=== PATIENT | female | born 1955 | race Caucasian/White ===

== ENCOUNTER → 2016-04-26 | Day surgery (SDC) | payer BC ==
[~2016-04-26] VITALS: Ht 167.6 cm; Wt 76.4 kg
[~2016-04-26] MED LIST: *RESP: ALBUTEROL 2.5 MG/3 ML NEB (PRN) PERIprocedural Use ONLY NEB ONE; ALPR.5 PO; AUGM875 PO; CYAN100015 INJ; EPINEPHrine HCL (1:1000) 1 MG/ML VIAL ONE; FURO1TAB62 PO; INSULIN HUMAN REGULAR 1,000 UNITS/10 ML VIAL SQ PRN; LACTATED RINGER'S 1000 ML IV SCH; LEVA500T PO; LEVO50TA53 PO; LIDOCAINE HCL 2% 50 ML VIAL ONE; LORT5TAB PO; METOPROLOL TARTRATE 25 MG TAB PO PRN; MIDAZOLAM HCL 2 MG/2 ML VIAL ONE; NORT25CA PO; ONDANSETRON HCL 4 MG/2 ML VIAL IV PUSH ONE; PROPOFOL 200 MG/20 ML AMP IV ONE; RESP: RACEPINEPHRINE 2.25% 0.5 ML NEB NEB ONE; SODIUM CHLORID 0.9% 500 ML IV SCH; SODIUM CHLORIDE 0.9% 20 ML VIAL ONE; SULF5SUS; TIZA4CAP3 PO; VITA10003 PO
--- NOTE | 2016-04-26 12:33 | MH ---
cc: LISA PATEL M.D., BRUCE G. DO ANEJA, ARJUN DATE OF ADMISSION 04/26/2016 DATE OF 1955 CHIEF COMPLAINT The patient will come for bronchoscopy on 04/26/2016. HISTORY OF PRESENT ILLNESS Ms. Lancaster is a pleasant 60-year-old female with a history of non-Hodgkin lymphoma diagnosed in 2009. She was treated with chemotherapy Rituxan and CHOP followed by two years of maintenance Rituxan which she completed in 2012. She was complaining of chronic cough, small amount of sputum production. No fever or chills. The patient was treated by Dr. Patel. She was sent for a CT scan of the chest done on November 18, 2016 at [facility]. It shows that she has a 4.4 x 2.8 cm soft tissue density in the right mediastinal region which is occluding the right upper lobe and right lower lobe bronchus and is causing a collapse of the lower lobe and the upper lobe. She also has a lesion was seems to impinge into the right mainstem bronchus. She has cough with a small amount of sputum production. No hemoptysis. PAST MEDICAL HISTORY 1. Non-Hodgkin's lymphoma status post chemotherapy 2. Crohn's disease 3. Anxiety disorder MEDICATIONS 1. Lasix 20 mg 2. Xanax 0.5 mg 3. Bactrim as needed 5. Levothyroxine 88 mcg 6. Tizanidine as needed PAST SURGICAL HISTORY She has history of: 1. Hysterectomy 2. Cholecystectomy 3. She has ileostomy which was reversed. 4. Hidradenitis surgery SOCIAL HISTORY She has a history of smoking for 20 years half to one pack a day which she quit in 2019. She drinks one beer. She is self-employed. FAMILY HISTORY for 42 years. She has two children, one has remission of ALL. Has one sister. Mother with cancer of the ovary and father with cancer of the lung. REVIEW OF SYSTEMS She denies any weight loss or fatigue. No fever or chills. No night. No hemoptysis. PHYSICAL EXAMINATION A well-built, well-nourished female not in acute distress. VITAL SIGNS: Blood pressure 126/72, heart rate 113, respirations 16, weight 169, oxygen saturation 92%. HEENT: Pupils are equal and reactive to light. Oral mucosa and mucosa normal. NECK: Supple. JVP not raised. CHEST: Equal bilaterally. No rhonchi. CARDIOVASCULAR: S1 and S2 normal. ABDOMEN: Soft, nondistended. She has a ileostomy in place. EXTREMITIES: No edema. IMPRESSION 1. A 4.5 x 2.9 cm soft tissue mass in the right mediastinal region obstructing the right upper lobe and right lower lobe bronchus causing postobstructive pneumonia. She also has a lesion impinging in the right upper lobe bronchus. Malignancy needs to be ruled out. 2. Non-Hodgkin's lymphoma 3. Crohn's disease 4. Anxiety disorder PLAN I have discussed with the patient, she will need bronchoscopy. I explained to her procedure the procedure and the complications including complications of anesthesia, pneumothorax requiring chest tube, bleeding complication, injury to the blood vessels and lungs, nerves, arrhythmia, she understands and wants to proceed with this. She will be scheduled for bronchoscopy at [facility] on 04/26/2016. MD STEWART Judge/RYAN /10:26 PM /11:30 AM EDMUNDO
[2016-04-26 14:45] VITALS: BP 98/63; PULSE 100; RESP 18; TEMP 98; O2SAT 97
[2016-04-26 15:16] LABS: AUTOMATED NEUTROPHIL # 6.9 TH/MM3 (1.8-7.7); BASOPHIL # 0.1 TH/MM3 (0-0.2); BASOPHIL % 0.7 % (0.0-2.0); EOSINOPHIL # 0.1 TH/MM3 (0-0.4); EOSINOPHIL % 1.6 % (0.0-4.0); HEMATOCRIT 42.4 % (35.0-46.0); HEMO FLAGS DIFF FINAL; LYMPH % 13.1 % (9.0-44.0); LYMPHOCYTE # 1.2 TH/MM3 (1.0-4.8); MEAN CORPUSCULAR HEMOGLOBIN 28.2 PG (27.0-34.0); MEAN CORPUSCULAR HGB CONC 33.2 % (32.0-36.0); MONO % 6.4 % (0.0-8.0); NEUT % 78.2 % (16.0-70.0); PLATELET COUNT 191 TH/MM3 (150-450); RED BLOOD COUNT 4.98 MIL/MM3 (4.00-5.30); RED CELL DISTRIBUTION WIDTH 12.9 % (11.6-17.2); WHITE BLOOD COUNT 8.9 TH/MM3 (4.0-11.0)
[2016-04-26 15:22] LABS: APTT (PATIENT) 27.5 SEC (24.3-30.1); PROTHROMBIN TIME - PATIENT 11.2 SEC (9.8-11.6)
--- NOTE | 2016-04-26 16:50 | MR ---
cc: ANNA MCLAIN ABDUL J. M.D. DATE 04/26/16 PROCEDURE Bronchoscopy PREOPERATIVE DIAGNOSIS Lung mass. POSTOPERATIVE DIAGNOSIS Two separate obstructing masses found in the entrance to the right upper lobe and one in the right lower lobe. PROCEDURE Informed consent was obtained from the patient. Procedure and the complications including complication of pneumothorax requiring chest tube, bleeding complication, injury due to the blood vessel, lungs, nerves, arrhythmia were explained and she consented for the procedure. The patient was brought to endoscopy suite under general anesthesia. LMA tube was placed by anesthesiologist. Bronchoscopy done through LMA tube. She has a large obstructing mass at the entrance of the right upper lobe. It is very friable and bleeds easily. Bronchoscope gradually advanced to the right lower lobe. There is another obstructing mass at the right lower lobe which is also very friable. The right lower lobe, right upper lobe brushings were done. The patient started bleeding. It was controlled with saline epinephrine lavage. After frequent lavages, finally bleeding was controlled. Biopsy was not done because of excessive bleeding. Bronchoscope pulled back, advanced to the left lung. Left upper lingula lower lobe were visualized. Small amount of spilled over blood was suctioned. No endobronchial lesion was seen. Brushing samples is sent from right upper lobe and right lower lobe. Cytology from the right lung and washings also sent for routine culture, AFB and fungal culture. Postprocedure chest x-ray ordered. MD STEWART Judge/ /4:25 PM /4:35 PM MTDEnrique
--- NOTE | 2016-04-26 17:00 | RADRPT ---
EXAM DATE/TIME: 04/26/2016 16:41 [facility] COMPARISON: No previous studies available for comparison. INDICATIONS : Post bronchoscopy. MEDICAL HISTORY : None. SURGICAL HISTORY : None. ENCOUNTER: Initial ACUITY: 1 day PAIN SCORE: 2/10 LOCATION: Right chest FINDINGS: A single view of the chest demonstrates significant opacity in the right upper lung field characteris tics of right upper lobe collapse. Minimal airspace disease is also noted along theright diaphragm. S mall right pleural effusion appears to be present. Left lung is clear. Heart is normal in size. There is no significant hilar enlargement. Osseous structures are intact. CONCLUSION: No evidence of pneumothorax status post bronchoscopy. Right upper lobe opacity characteristic of collapse. Suspect a small right pleural effusion and right basilar airspace disease. Nima Griffith MD on April 26, 2016 at 16:56 Board Certified Radiologist. This report was verified electronically.
[2016-04-26 18:35] VITALS: BP 121/69; PULSE 129; RESP 20; TEMP 98; O2SAT 95
--- NOTE | 2016-04-27 15:45 | EKG ---
Date Performed: 04/26/2016 Time Performed: 14:34:30 PTAGE: 60 years EKG: SINUS TACHYCARDIA POSSIBLE RIGHT VENTRICULAR CONDUCTION DELAY MODERATE T-WAVE ABNORMALITY, CONSIDER ANTERIOR ISCHEMIA ABNORMAL ECG PREVIOUS TRACING : 05/31/2010 12.11 Compared to previous tracing, the patient is now tachycardi c. DOCTOR: Cristal Dean Interpretating Date/Time 04/27/2016 15:44:52
== END | disposition home or self-care (01) ==
LOC: HSDC 14:02
PROVIDERS: ATTEND Specialist
DX: R91.8 Other nonspecific abnormal finding of lung field (principal); R05 Cough; Z85.72 Personal history of non-Hodgkin lymphomas; Z87.891 Personal history of nicotine dependence; R94.31 Abnormal electrocardiogram [ECG] [EKG]; B96.20 Unspecified Escherichia coli [E. coli] as the cause of diseases classified elsewhere
CPT/HCPCS: 00520; 31622; 71010; 85025; 85610; 85730; 87015; 87070; 87077; 87102; 87116; 87186; 87205; 87206; 93005; 94640; 94664; J0171; J2250; J2405; J7120; J7613

== ENCOUNTER 2016-05-16 08:00 | Day surgery (SDC) | payer BC ==
[~2016-05-16] VITALS: Ht 167.6 cm; Wt 76.8 kg
[2016-05-16] VITALS (8 sets, daily range): BP systolic 102–133; BP diastolic 60–82; PULSE 93–116; RESP 18–20; TEMP 96.9–97.5; O2SAT 93–96
[~2016-05-16 08:00] MED LIST changes: -*RESP: ALBUTEROL 2.5 MG/3 ML NEB (PRN) PERIprocedural Use ONLY NEB ONE; -AUGM875 PO; -EPINEPHrine HCL (1:1000) 1 MG/ML VIAL ONE; -INSULIN HUMAN REGULAR 1,000 UNITS/10 ML VIAL SQ PRN; -LACTATED RINGER'S 1000 ML IV SCH; -LIDOCAINE HCL 2% 50 ML VIAL ONE; -LORT5TAB PO; -METOPROLOL TARTRATE 25 MG TAB PO PRN; -MIDAZOLAM HCL 2 MG/2 ML VIAL ONE; -ONDANSETRON HCL 4 MG/2 ML VIAL IV PUSH ONE; -PROPOFOL 200 MG/20 ML AMP IV ONE; -RESP: RACEPINEPHRINE 2.25% 0.5 ML NEB NEB ONE; -SODIUM CHLORID 0.9% 500 ML IV SCH; -SODIUM CHLORIDE 0.9% 20 ML VIAL ONE; -SULF5SUS; -VITA10003 PO
[2016-05-16] MEDS ORDERED: LIDOCAINE 1%/EPINEPHrine 1:100,000 SOLN 20 ML VIAL ONE (08:15)
[2016-05-16] MEDS ORDERED: VITA10003 PO (08:35)
[2016-05-16] MEDS ORDERED: fentaNYL CITRATE 250 MCG/5 ML AMP ONE (09:16)
[2016-05-16] MEDS ORDERED: MIDAZOLAM HCL 5 MG/5 ML VIAL ONE (09:17)
--- NOTE | 2016-05-16 10:19 | RADRPT ---
EXAM DATE/TIME: 05/16/2016 09:25 [facility] COMPARISON: No previous studies available for comparison. INDICATIONS : Right lung mass. SEDATION TIME: 30 minutes BIOPSY SITE: Right lung MEDICATION(S): 1.) 3 mg midazolam (Versed) IV 2.) 150 mcg fentanyl (Sublimaze) IV DEVICE(S): 1.) 18 gauge West blunt needle 2.) 20 gauge Temno core biopsy needle MEDICAL HISTORY : Crohn's disease. Chronic obstructive pulmonary disease. Non-Hodgkins lymphoma. SURGICAL HISTORY : Appendectomy. Hysterectomy. Cholecystectomy. Ileostomy. ENCOUNTER: Initial ACUITY: 1 day PAIN SCORE: 0/10 LOCATION: Right chest A total of four core specimen(s) were obtained and sent to the laboratory for pathologic evaluation. PROCEDURE: 1. CT guided lung biopsy. 2. Conscious sedation with continuous EKG and oximetry monitoring. 3. EKG and oximetry remained stable throughout the procedure. Prior to the procedure informed consent was obtained. Any appropriate prior imaging studies were rev iewed. Using automated exposure control and adjustment of the mA and/or kV according to patient size, radiation dose was kept as low as reasonably achievable to obtain optimal diagnostic quality images. The site was prepped in a sterile fashion. Full sterile technique was used, including cap, mask, alicia rile gloves and gown and a large sterile sheet. Hand hygiene and 2% chlorhexidine and/or betadine/al cohol prep was utilized per protocol for cutaneous antisepsis. The skin and subcutaneous tissues wer e infiltrated with local anesthetic solution. Under CT guidance an 18 gauge blunt needle was placed down to the lesion. 4 cores were obtained from the most solid part of the consolidation. Material was submitted for culture, RPMI and formalin. Follow-up CT scan reveals no pneumothorax. Conscious sedation was performed with the prescribed dosages and duration as above in the presence of an independent trained radiology nurse to assist in the monitoring of the patient. EKG and oximetry remained stable throughout the procedure. The patient tolerated the procedure well and there were no complications. The patient was sent to Radiology Outpatient Unit in stable condition. CONCLUSION: Uncomplicated CT guided biopsy. Pathology and culture are pending. Guido Tyson MD FACR on May 16, 2016 at 10:17 Board Certified Radiologist. This report was verified electronically.
--- NOTE | 2016-05-16 12:15 | RADRPT ---
EXAM DATE/TIME: 05/16/2016 12:03 [facility] COMPARISON: CHEST SINGLE AP, April 26, 2016, 16:41. INDICATIONS : Evaluate for pmeumothorax. Post right lung biopsy MEDICAL HISTORY : Chronic obstructive pulmonary disease. SURGICAL HISTORY : Appendectomy. ENCOUNTER: Initial ACUITY: 1 day PAIN SCORE: 0/10 LOCATION: Right chest FINDINGS: There is no significant interval change in the appearance of the right lung following biopsy of the r ight lower lobe. The left lung is clear. CONCLUSION: Negative for pneumothorax. Guido Tyson MD FACR on May 16, 2016 at 12:12 Board Certified Radiologist. This report was verified electronically.
== END 2016-05-16 14:45 | disposition home or self-care (01) ==
LOC: HRAD 08:00 → HRIP 08:03 → HRAD 14:45
PROVIDERS: ATTEND Thoracic Surgery (Cardiothoracic Vascular Surgery)
DX: R91.8 Other nonspecific abnormal finding of lung field (principal); C85.90 Non-Hodgkin lymphoma, unspecified, unspecified site; J44.9 Chronic obstructive pulmonary disease, unspecified; K50.90 Crohn's disease, unspecified, without complications; Z90.49 Acquired absence of other specified parts of digestive tract
CPT/HCPCS: 32405; 71010; 77012; 87015; 87070; 87102; 87116; 87205; 87206; 88305; 88333; J2250; J3010

== ENCOUNTER → 2016-06-22 | Day surgery (SDC) | payer BC ==
[~2016-06-22] MED LIST changes: +ACETAMINOPHEN 1000 MG/100 ML VIAL IV ONE; +HEPARIN SODIUM - IV 10,000 UNITS/10 ML VIAL ONE; +LACTATED RINGER'S 1000 ML INJ 1,000 ML ONE; -LEVA500T PO; +LIDOCAINE 1%/EPINEPHrine 1:100,000 SOLN 50 ML VIAL ONE; +MIDAZOLAM HCL 2 MG/2 ML VIAL ONE; +ONDANSETRON HCL 4 MG/2 ML VIAL IV PUSH ONE; +PROPOFOL 200 MG/20 ML AMP IV ONE; +SODIUM CHLORIDE 0.9% INJ 10 ML ONE; +VITA10003 PO; +ceFAZolin 2 GM PREMIX 50 ML ONE
--- NOTE | 2016-06-22 09:18 | TN ---
cc: KEVIN LAKE M.D., ABDUL J. M.D. DATE OF SURGERY: 06/22/2016 PREOPERATIVE DIAGNOSIS Right lung cancer. POSTOPERATIVE DIAGNOSIS Right lung cancer. PROCEDURE Left subclavian Gjwzbg-J-Ktwn placement under direct fluoroscopic visualization. SURGEON Dr. Kevin Lake ANESTHESIA Local 1% lidocaine with epinephrine plus TIVA. INDICATIONS This is a very pleasant 60-year-old woman who presents with a right lung cancer. She is to undergo chemoradiation. Wpgsku-D-Gmej placement was requested. INTRAOPERATIVE FINDINGS Successful placement of a left subclavian Ipilul-O-Igfp. Mediastinal anatomy distorted by tumor, but tip of catheter in superior vena cava. There was easy blood return and forward concentrated heparinized saline flush flowed through the port. ESTIMATED BLOOD LOSS Less than 10 mL. Portable chest x-ray is pending. DESCRIPTION OF PROCEDURE IN DETAIL The patient was identified as Parvin Lancaster, taken to the operating room and placed in supine position. Sequential compression devices were placed on bilateral lower extremities. Following induction of adequate intravenous anesthesia a rolled sheet was placed beneath the shoulder blades and she was placed in Trendelenburg position. The upper chest and neck were prepped and draped in the usual sterile fashion with Betadine. A timeout procedure was performed. Following completion of the timeout procedure to everyone's satisfaction within the room, 1% lidocaine with epinephrine was placed in a left subclavian position for local anesthetic. The left subclavian vein was entered without difficulty using an introducer needle on the first pass. The guidewire was advanced through the introducer needle into appropriate position as seen on C-arm fluoroscopy. Mediastinal structures were distorted and the guidewire lay more to the right than in a normal situation, but given her cancer location this was an expected finding. An incision was made at the guidewire exit site and Ekkdsf-D-Admq pocket was developed into the subcutaneous tissue in the left chest wall. The Pxdbbn-A-Ngso which had been flushed with heparinized saline was placed into the Eatykm-C-Bznc pocket with two 2-0 Prolene stay sutures. The catheter was cut to an appropriate length as seen on C-arm fluoroscopy 21 cm. The dilator and dilating sheath were placed over the guidewire. The dilator and guidewire were removed and the catheter extended to the dilating sheath which was then removed. C-arm fluoroscopy demonstrated the tip of the catheter in the expected location of the superior vena cava. Port function was tested. There was easy blood return and forward concentrated heparinized saline flush flowed through the port. The Pgtpce-O-Dotf pocket was closed with 3-0 Vicryl and 4-0 Monocryl. Dressings were applied with Mastisol, half-inch brown Steri-Strips, gauze and Tegaderm. The patient tolerated the procedure without apparent complication. Sponge, needle and instrument counts were correct at the end of the case. The patient was returned to the post-anesthesia care unit in stable condition. A portable chest x-ray is pending. MD KATIE Glass/ANJEL /8:37 AM /9:02 AM
== END | disposition home or self-care (01) ==
LOC: ESDC 06:37
PROVIDERS: ATTEND Surgery Trauma Surgery
DX: Z45.2 Encounter for adjustment and management of vascular access device (principal); C34.91 Malignant neoplasm of unspecified part of right bronchus or lung
CPT/HCPCS: 00532; 36561; 77001; C1788; J0131; J0690; J1644; J2250; J2405; J3010; J7120

== ENCOUNTER 2016-08-22 09:07 | Day surgery (SDC) | payer BC ==
[~2016-08-22] VITALS: Ht 167.6 cm; Wt 74.5 kg
[~2016-08-22 09:07] MED LIST changes: -ACETAMINOPHEN 1000 MG/100 ML VIAL IV ONE; -HEPARIN SODIUM - IV 10,000 UNITS/10 ML VIAL ONE; -LACTATED RINGER'S 1000 ML INJ 1,000 ML ONE; -LIDOCAINE 1%/EPINEPHrine 1:100,000 SOLN 50 ML VIAL ONE; -MIDAZOLAM HCL 2 MG/2 ML VIAL ONE; -ONDANSETRON HCL 4 MG/2 ML VIAL IV PUSH ONE; -PROPOFOL 200 MG/20 ML AMP IV ONE; -SODIUM CHLORIDE 0.9% INJ 10 ML ONE; -ceFAZolin 2 GM PREMIX 50 ML ONE
[2016-08-22 09:21] VITALS: BP 105/51; PULSE 102; RESP 20; TEMP 98.2; O2SAT 97
[2016-08-22] MEDS ORDERED: GABA300C5 PO (09:49)
[2016-08-22 12:50] VITALS: BP 85/63; PULSE 109; RESP 20; TEMP 98.3; O2SAT 95
--- NOTE | 2016-08-22 12:53 | PD.RAD ---
Post Procedure Progress Note Pre Procedure Diagnosis: (1) Problem with vascular access Post Procedure Diagnosis: (1) Problem with vascular access Procedure Date: Aug 22, 2016 Supervising Radiologist: Jesu Lui JR Proceduralist/Assist: RT Jon(R)() Anesthesia: Other Plan of Activity Patient to Unit: ROPU Patient Condition: Good Additional Comments: Left chest port evaluation shows port with tip at innominate/brachiocephalic confluence. A fibrin sheath is seen around tip of catheter. Port can be utilized for administration of medications but blood draws will likely not be possible. See PACS Report for procedural detail/treatment Jr. Hu,Jesu Celaya MD Aug 22, 2016 12:53
[2016-08-22 13:00] VITALS: BP 99/67; PULSE 106; RESP 18; O2SAT 95
--- NOTE | 2016-08-22 13:59 | RADRPT ---
EXAM DATE/TIME: 08/22/2016 12:29 [facility] COMPARISON: No previous studies available for comparison. INDICATIONS : Patient with history of lung cancer in need of port patency injection. Port flushes but does not aspi rate. MEDICAL HISTORY : 1.Lung cancer 2.Hypothyroidism 3.Hypercholesterolemia 4.Non-hodgkins lymphoma 5.Crohns SURGICAL HISTORY : 1.Port placement 2.Ileostomy 3.Cholecystectomy 4.Appendectomy 5.Hysterectomy 6.Fistula repair 7.Hernia repair ENCOUNTER: Initial ACUITY: 2 months PAIN SCORE: 0/10 FLUORO TIME: 0.1 minutes IMAGE SERIES: 1 CONTRAST: 7 cc Omnipaque (iohexol) 350 MEDICATION(S): 1.) 500 units Heparin port lock IV PROCEDURE : 1. Access of Dayzhn-c-vzic. 2. Port patency injection. The risks, benefits and alternatives to the procedure were explained and verbal and written consent w as obtained. The patient was placed supine. The port was prepped in sterile fashion. Full sterile t echnique was used, including cap, mask, sterile gloves and gown, and a large sterile sheet. Hand hyg iene and 2% chlorhexidine prep was utilized per protocol for cutaneous antisepsis with appropriate dr y time for site. The previously placed port was accessed and positive contrast was injected for evaluation. Injection demonstrates a left subclavian vein Port-A-Cath. The tip of the catheter abuts the lateral wall of t he vein at the confluence of the innominate vein and brachiocephalic vein. There is a fibrin sheath i nvolving the tip of the catheter. The tip of the catheter is within the lumen of the vein. No extrava sation of contrast observed to suggest a fracture within the catheter. Access to the catheter is not needed and therefore the catheter was flushed with heparin solution and the Noble needle removed. CONCLUSION: 1. Fibrin sheath surrounding the tip of the catheter. The catheter is within the venous structures. T his port can be utilized for infusion. Aspiration for blood will likely yield no significant return. Jesu Lui Jr., MD on August 22, 2016 at 13:55 Board Certified Radiologist. This report was verified electronically.
== END 2016-08-22 13:05 | disposition home or self-care (01) ==
LOC: HROP 09:07 → HRIP 09:10 → HROP 13:05
PROVIDERS: ATTEND Internal Medicine Hematology & Oncology
DX: T82.514A Breakdown (mechanical) of infusion catheter, initial encounter (principal); C34.90 Malignant neoplasm of unspecified part of unspecified bronchus or lung; E03.9 Hypothyroidism, unspecified; E78.00 Pure hypercholesterolemia, unspecified; Z85.72 Personal history of non-Hodgkin lymphomas; K50.90 Crohn's disease, unspecified, without complications
CPT/HCPCS: 36598; J1642

== ENCOUNTER 2016-10-31 14:11 | Inpatient (IN) | payer BC ==
[~2016-10-31] VITALS: Ht 167.6 cm; Wt 74.6 kg
[~2016-10-31 14:11] MED LIST changes: +GABA300C5 PO
[2016-10-31 16:16] VITALS: BP 95/50; PULSE 128; RESP 24; TEMP 101.3; O2SAT 97
[2016-10-31 17:12] VITALS: BP 114/59; PULSE 124; RESP 28; TEMP 100.7; O2SAT 95
[2016-10-31] MEDS ORDERED: LORazepam 0.5 MG TAB PO PRN (18:45)
[2016-10-31] MEDS ORDERED: ALTEPLASE RECOMBINANT 2 MG VIAL IVF PRN (18:45)
[2016-10-31] MEDS ORDERED: SODIUM CHLOR 0.9% 250 ML INJ 250 ML IV ONE (18:45)
[2016-10-31] MEDS ORDERED: MAGNESIUM HYDROXIDE SUSP 30 ML CUP PO PRN (18:45)
[2016-10-31] MEDS ORDERED: PROCHLORPERAZINE INJ 10 MG/2 ML VIAL IV PRN (18:45)
[2016-10-31] MEDS ORDERED: LORazepam 2 MG/ML VIAL IV PRN (18:45)
[2016-10-31] MEDS ORDERED: LOPERAMIDE HCL 2 MG CAP PO PRN (18:45)
[2016-10-31] MEDS ORDERED: ALUMINUM/MAGNESIUM/SIMETH 30 ML CUP PO PRN (18:45)
[2016-10-31] MEDS ORDERED: TEMAZEPAM 15 MG CAP PO PRN (18:45)
[2016-10-31] MEDS ORDERED: ACETAMINOPHEN 325 MG TAB PO PRN (18:45)
[2016-10-31] MEDS ORDERED: MORPHINE SULFATE 8 MG/ML INJ IV PUSH PRN (18:45)
[2016-10-31] MEDS ORDERED: ONDANSETRON INJ 8 MG in DEXTROSE 5% IN WATER INJ 50 ML IV PRN ×2 (18:45)
--- NOTE | 2016-10-31 19:43 | MH ---
cc: LISA VALDEZ M.D. DATE OF ADMISSION 10/31/2016 REASON FOR ADMISSION Neutropenic fever, severe anemia and severe thrombocytopenia. HISTORY OF PRESENT ILLNESS Parvin is a pleasant 61-year-old female. 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 She has a stage III lung cancer. She was treated with combined concurrent radiation and weekly carboplatin, Taxol chemotherapy from July 02 through August 24. However, she had developed worsening of peripheral neuropathy with the Taxol chemotherapy. So the last 2 cycles of combined chemotherapy with the radiation Taxol was not given. After she completed the radiation therapy course she was started on consolidation carboplatin and Gemzar chemotherapy on September 14. The patient had developed severe myelosuppression from the chemotherapy. Therefore, I changed the chemotherapy to carboplatin and etoposide which was given on October 17. The patient tolerated the treatment well. She did not have any worsening of the peripheral neuropathy. She called our office yesterday that she is not feeling well. She was advised to come in to the clinic for a blood test. The CBC this morning showed white count 0.6, hemoglobin 6.9, hematocrit 19.3, platelet count is only 8. The absolute neutrophil count is only 200. The patient is now admitted to the oncology for neutropenic fever, severe thrombocytopenia and severe anemia. In the clinic the patient had a fever of 100.9. She has been complaining of cough with whitish phlegm. She is also complaining of shortness of breath, feeling weak, tired, dizzy. The rest of the review of system is negative. PAST MEDICAL HISTORY 1. Anxiety. 2. B12 deficiency. 3. Crohn's disease. 4. Hypercholesterolemia. 5. Hypothyroidism. 6. Peripheral neuropathy. 7. Non-small cell lung cancer. 8. History of non-Hodgkin's lymphoma treated in 2009. PAST SURGICAL HISTORY 1. A total colectomy for Crohn disease. 2. Appendectomy. 3. Hysterectomy. 4. Ofcryn-X-Otfi. 5. Right lung biopsy. 6. Colonoscopy. ALLERGIES None. MEDICATIONS Are: 1. Xanax p.r.n. 2. Potassium. 3. Lasix. 4. Levoxyl. 5. Lomotil. 6. Aldactone. FAMILY HISTORY Noncontributory. SOCIAL HISTORY The patient does not smoke cigarettes, does not drink alcohol. PHYSICAL EXAMINATION GENERAL: This is a well-developed, well-nourished white female in no apparent distress. VITAL SIGNS: Temperature 100.7, heart rate is 124, respiratory rate is 28, blood pressure is 114/59, O2 saturation 95%. HEENT: PERRLA, EOMI, anicteric. No oral lesions noted. NECK: Supple. No lymphadenopathy noted. LUNGS: Clear. No wheezing, rhonchi or rales. CARDIOVASCULAR: Heart is regular rate and rhythm. ABDOMEN: Soft, nontender. No hepatosplenomegaly. EXTREMITIES: No pedal edema. NEUROLOGIC: Awake, alert, oriented times threes. SKIN: No significant lesions are noted. ASSESSMENT 1. Neutropenic fever. 2. Severe thrombocytopenia from the chemotherapy. 3. Severe anemia from the chemotherapy. 4. Non-small cell lung cancer status post combined concurrent radiation chemotherapy for stage III. The patient is now on consolidative chemotherapy. 5. History of non-Hodgkin's lymphoma. 6. Hypothyroidism. 7. Crohn disease status post a total colectomy. PLAN I have discussed with the patient, her and son regarding the reason for admission to the hospital. The patient has a severe pancytopenia due to chemotherapy. The patient already had received platelet transfusion in the clinic. Blood cultures were done in the office and she had received first dose of vancomycin and cefepime. The patient is now admitted to the oncology floor. The patient will receive 2 units of blood transfusion tonight. I will get a chest x-ray as well for possible pneumonia. Will get urine analysis also. I will start her on Neupogen for neutropenic fever. I will continue her home medications. We will treat infection empirically with vancomycin and cefepime. We will monitor her CBC and electrolytes daily and supplements if needed. The patient and the family have asked several questions and these were answered to their satisfaction. Further recommendations based on her hospital stay. MD KATE Mcgill/GREGG /7:13 PM /7:26 PM EDMUNDO
[2016-10-31 20:00] VITALS: BP 87/49; PULSE 89; RESP 18; TEMP 102.3; O2SAT 99
[2016-10-31] MEDS: CEFEPIME INJ 2,000 MG in SODIUM CHLORIDE 0.9% INJ 100 ML IV SCH (20:32)
[2016-10-31] MEDS: ACETAMINOPHEN 325 MG TAB PO PRN (21:10)
[2016-10-31] MEDS: VANCOMYCIN INJ 1,050 MG in SODIUM CHLOR 0.9% 250 ML INJ 250 ML IV SCH (21:22)
[2016-10-31 21:45] VITALS: BP 102/54; PULSE 100; RESP 22; TEMP 101.2; O2SAT 97
[2016-10-31 22:15] VITALS: BP 90/49; PULSE 110; RESP 22; TEMP 100.5; O2SAT 95
[2016-10-31 22:40] VITALS: BP 98/45; PULSE 120; RESP 22; TEMP 99.4; O2SAT 98
[2016-10-31] MEDS ORDERED: SODIUM CHLOR 0.9% 1000 ML INJ 1,000 ML IV ONE (23:00)
[2016-10-31] MEDS: diphenhydrAMINE HCL 25 MG CAP PO PRN (23:17)
[2016-10-31] MEDS: FILGRASTIM INJ 480 MCG in DEXTROSE 5% IN WATER INJ 48.4 ML IV SCH ×2 (23:19)
[2016-11-01] VITALS (11 sets, daily range): BP systolic 88–117; BP diastolic 49–62; PULSE 89–120; RESP 16–24; TEMP 99–101.4; O2SAT 93–99
[2016-11-01 03:14] LABS: BLOOD, URINE NEG (NEG); GLUCOSE,URINE NEG (NEG); HYALINE CAST, URINE 3 /lpf (RARE); KETONE, URINE TRACE mg/dL (NEG); MUCUS URINE FEW /lpf (OCC); NITRITE,URINE NEG (NEG); SQUAMOUS EPITHELIAL CELL URINE <1 /hpf (0-5); URINE COLOR YELLOW (YELLW/STRAW)
[2016-11-01] MEDS: diphenhydrAMINE HCL 25 MG CAP PO PRN (03:22)
[2016-11-01] MEDS: CEFEPIME INJ 2,000 MG in SODIUM CHLORIDE 0.9% INJ 100 ML IV SCH ×3 (03:48→20:56)
[2016-11-01] MEDS: LEVOTHYROXINE SODIUM 25 MCG TAB PO SCH (06:00)
--- NOTE | 2016-11-01 06:55 | RADRPT ---
EXAM DATE/TIME: 11/01/2016 06:34 [facility] COMPARISON: CHEST EXPIRATION ONLY, May 16, 2016, 12:03. CHEST SINGLE AP, April 26, 2016, 16:41. INDICATIONS : Fever and cough. MEDICAL HISTORY : Carcinoma, lung. Chronic obstructive pulmonary disease. SURGICAL HISTORY : Appendectomy. Infusaport. Hernia repair. ENCOUNTER: Subsequent ACUITY: 2 days PAIN SCORE: 0/10 LOCATION: Bilateral chest FINDINGS: PA and lateral views of the chest shows some volume loss involving the right hemithorax. There is nod ularity involving the right hilum. No acute infiltrate or effusion. Heart is normal in size. Power po rt overlies the left chest. CONCLUSION: Nodularity involving the right hilum with volume loss involving the right hemithorax. No infiltrate. Jesu Lui Jr., MD on November 01, 2016 at 6:52 Board Certified Radiologist. This report was verified electronically.
[2016-11-01] MEDS: ACETAMINOPHEN 325 MG TAB PO PRN (09:37)
[2016-11-01] MEDS: VANCOMYCIN INJ 1,050 MG in SODIUM CHLOR 0.9% 250 ML INJ 250 ML IV SCH ×2 (09:37→20:57)
[2016-11-01 10:37] LABS: AUTOMATED NEUTROPHIL # 1.6 TH/MM3 (1.8-7.7); BASOPHIL % 0.2 % (0.0-2.0); EOSINOPHIL % 0.1 % (0.0-4.0); HEMATOCRIT 23.2 % (35.0-46.0); LYMPH % 5.6 % (9.0-44.0); LYMPHOCYTE # 0.1 TH/MM3 (1.0-4.8); MEAN CORPUSCULAR HEMOGLOBIN 31.9 PG (27.0-34.0); MEAN CORPUSCULAR HGB CONC 35.8 % (32.0-36.0); MONO % 14.2 % (0.0-8.0); NEUT % 79.9 % (16.0-70.0); PLATELET COUNT 25 TH/MM3 (150-450); RED CELL DISTRIBUTION WIDTH 17.8 % (11.6-17.2)
[2016-11-01 10:44] LABS: HEMO FLAGS AUTO DIFF
--- NOTE | 2016-11-01 11:07 | PD.ONC.PN ---
Subjective Subjective Remarks Tmax 100.8 overnight. Patient had cough productive of sputum overnight. She provided a sample and it was sent down for culture. She is feeling better today than she was yesterday. Has more energy and feeling better overall. No nausea or diarrhea. Objective Data Date Time Temp Pulse Resp B/P (MAP) Pulse Ox O2 Delivery O2 Flow Rate FiO2 11/01/16 05:15 99.6 89 20 106/53 99 11/01/16 04:45 99.6 105 22 93/49 99 11/01/16 04:30 99.3 113 24 98/56 99 11/01/16 02:47 115 20 113/55 93 11/01/16 02:47 100.8 11/01/16 01:31 100.5 113 24 111/59 94 11/01/16 01:03 100.5 113 16 88/49 95 11/01/16 00:41 100.0 110 20 90/50 98 10/31/16 22:40 99.4 120 22 98/45 (62) 98 10/31/16 22:15 100.5 110 22 90/49 (63) 95 10/31/16 21:45 101.2 100 22 102/54 (70) 97 10/31/16 20:00 102.3 89 18 87/49 (62) 99 10/31/16 17:12 100.7 124 28 114/59 (77) 95 10/31/16 16:16 101.3 128 24 95/50 97 11/01/16 11/01/16 11/01/16 07:00 15:00 23:00 Intake Total 1450 ml Balance 1450 ml Laboratory Results Laboratory Tests Test 11/01/16 03:00 Urine Color YELLOW Urine Turbidity CLEAR Urine pH 5.0 Urine Specific [place] 1.021 Urine Protein TRACE mg/dL Urine Glucose (UA) NEG mg/dL Urine Ketones TRACE mg/dL Urine Occult Blood NEG Urine Nitrite NEG Urine Bilirubin NEG Urine Urobilinogen LESS THAN 2.0 MG/DL Urine Leukocyte Esterase NEG Urine RBC 1 /hpf Urine WBC 2 /hpf Urine Squamous Epithelial Cells <1 /hpf Urine Hyaline Casts 3 /lpf Urine Mucus FEW /lpf Culture Results Microbiology Date/Time Source Procedure Growth Status 11/01/16 06:05 Sputum Expectorated Sputum Gram Stain Pending Received 11/01/16 06:05 Sputum Expectorated Sputum Sputum Culture Pending Received Administered Medications Medications (Trade) Dose Ordered Sig/Lisa Route PRN Reason Start Time Stop Time Status Last Admin Dose Admin Sodium Chloride 250 ml @ 15 mls/hr ONCE ONCE IV 10/31/16 18:45 11/01/16 11:24 10/31/16 00:40 Acetaminophen (Tylenol) 650 mg Q4H PRN PO SEE LABEL COMMENTS 10/31/16 18:45 11/01/16 02:45 Acetaminophen (Tylenol) 650 mg Q4H PRN PO PAIN SCALE 1-3 OR TEMP> 100.5F 10/31/16 18:45 11/01/16 09:37 Oxycodone HCl (Roxicodone) 5 mg Q3H PRN PO PAIN SCALE 4 TO 7 10/31/16 18:45 11/01/16 02:50 Vancomycin HCl 1050 mg/Sodium Chloride 260.5 ml @ 250 mls/hr Q12H IV 10/31/16 21:00 11/01/16 09:37 Cefepime HCl 2000 mg/Sodium Chloride 100 ml @ 200 mls/hr Q8H IV 10/31/16 21:00 11/01/16 03:48 Filgrastim 480 mcg/Dextrose 50 ml @ 100 mls/hr DAILY@14 IV 10/31/16 21:00 10/31/16 23:19 Levothyroxine Sodium (Synthroid) 25 mcg DAILY@0600 PO 11/01/16 06:00 11/01/16 06:00 Objective Remarks GENERAL: Middle aged female upright in bed in [facility]. SKIN: Warm and dry. HEAD: Normocephalic. EYES: No injection or drainage. NECK: Supple, trachea midline. CARDIOVASCULAR: Regular rate and rhythm RESPIRATORY: Breath sounds equal bilaterally. No accessory muscle use. GASTROINTESTINAL: Abdomen soft, non-tender, nondistended. EXTREMITIES: No cyanosis NEUROLOGICAL: awake and alert, normal speech. moving all extremities. Assessment/Plan Problem List: (1) Neutropenic fever ICD Codes: D70.9 - Neutropenia, unspecified; R50.81 - Fever presenting with conditions classified elsewhere Plan: 11/01: await blood cultures. draw peripheral blood culture (only line was obtained yesterday). start IVF. 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 July 02 to August 24--treated with combined concurrent radiation and weekly carboplatin, Taxol chemotherapy developed worsening of peripheral neuropathy with the Taxol chemotherapy. last 2 cycles not given. September 14--consolidation carboplatin and Gemzar chemotherapy-->developed severe myelosuppression from the chemotherapy. October 17--chemotherapy changed to carboplatin and etoposide-->tolerated the treatment well. October 31--admitted with neutropenic fever, severe pancytopenia (3) Pancytopenia ICD Codes: D61.818 - Other pancytopenia Plan: --Severe thrombocytopenia from the chemotherapy. --Severe anemia from the chemotherapy. --on Neupogen --s/p 2 units pRBC Assessment 61y/o female admitted with neutropenic fever, severe anemia and severe thrombocytopenia. h/o Anxiety. B12 deficiency. Crohn's disease.Hypercholesterolemia. Hypothyroidism. Peripheral neuropathy. Non-small cell lung cancer. History of non-Hodgkin's lymphoma treated in 2009. Attending Statement feels better Low grade fever Continue a/b and Neupogen. monitor cbc Shakira Manuel Nov 01, 2016 10:25 Jose Patel MD Nov 01, 2016 20:27
[2016-11-01] MEDS: SODIUM CHLOR 0.9% 1000 ML INJ 1,000 ML IV SCH ×2 (11:15→23:10)
[2016-11-01 11:31] LABS: POTASSIUM 4.1 MEQ/L (3.5-5.1)
[2016-11-01 11:52] LABS: BANDS 33 % (0-6); CORRECTED NUCLEATED RBC 2 /100 WBC (0-0); NEUTROPHIL # MANUAL DIFF 1.6 TH/MM3 (1.8-7.7); PLATELET ESTIMATE SMEAR LOW (NORMAL); PLATELET MORPHOLOGY NORMAL (NORMAL); POLYS (SEG NEUTROPHILS) 46 % (16-70); SCAN/DIFF FINAL DIFF MANUAL; WBC DIFF SAMPLE 100
[2016-11-01 11:53] LABS: OVALOCYTES 1+ (NORMAL)
[2016-11-01 14:09] LABS: INDIRECT BILIRUBIN 2.2 MG/DL (0.0-0.8); TOTAL BILIRUBIN ADULT 3.1 MG/DL (0.2-1.0)
[2016-11-01] MEDS: FILGRASTIM INJ 480 MCG in DEXTROSE 5% IN WATER INJ 48.4 ML IV SCH ×2 (14:37)
[2016-11-02] VITALS: BP 95/49; PULSE 119; RESP 20; TEMP 100.3; O2SAT 100
[2016-11-02] MEDS: LEVOTHYROXINE SODIUM 25 MCG TAB PO SCH (03:43)
[2016-11-02] MEDS: CEFEPIME INJ 2,000 MG in SODIUM CHLORIDE 0.9% INJ 100 ML IV SCH (03:46)
[2016-11-02 04:00] VITALS: BP 108/74; PULSE 120; RESP 22; TEMP 100.3; O2SAT 96
[2016-11-02 06:46] LABS: AUTOMATED NEUTROPHIL # 4.1 TH/MM3 (1.8-7.7); BASOPHIL % 0.1 % (0.0-2.0); EOSINOPHIL % 0.2 % (0.0-4.0); HEMATOCRIT 22.8 % (35.0-46.0); LYMPH % 2.6 % (9.0-44.0); LYMPHOCYTE # 0.1 TH/MM3 (1.0-4.8); MEAN CORPUSCULAR HEMOGLOBIN 32.2 PG (27.0-34.0); MEAN CORPUSCULAR HGB CONC 35.8 % (32.0-36.0); MONO % 10.7 % (0.0-8.0); NEUT % 86.4 % (16.0-70.0); PLATELET COUNT 22 TH/MM3 (150-450); RED BLOOD COUNT 2.53 MIL/MM3 (4.00-5.30); RED CELL DISTRIBUTION WIDTH 18.6 % (11.6-17.2); WHITE BLOOD COUNT 4.7 TH/MM3 (4.0-11.0)
[2016-11-02 07:02] LABS: HEMO FLAGS AUTO DIFF
[2016-11-02 07:14] LABS: POTASSIUM 4.1 MEQ/L (3.5-5.1)
[2016-11-02 08:00] VITALS: BP 120/64; PULSE 117; RESP 20; TEMP 97.7; O2SAT 99
[2016-11-02 08:40] LABS: INDIRECT BILIRUBIN 0.9 MG/DL (0.0-0.8); TOTAL BILIRUBIN ADULT 1.6 MG/DL (0.2-1.0)
[2016-11-02 08:42] LABS: BANDS 33 % (0-6); METAMYELOCYTES 1 % (0-1); MYELOCYTES 1 % (0-0); NEUTROPHIL # MANUAL DIFF 4.3 TH/MM3 (1.8-7.7); POLYS (SEG NEUTROPHILS) 56 % (16-70); WBC DIFF SAMPLE 100
[2016-11-02 08:43] LABS: PLATELET ESTIMATE SMEAR LOW (NORMAL); PLATELET MORPHOLOGY NORMAL (NORMAL); SCAN/DIFF FINAL DIFF MANUAL; TOXIC GRANULATION 1+ (NORMAL)
[2016-11-02] MEDS: VANCOMYCIN INJ 1,050 MG in SODIUM CHLOR 0.9% 250 ML INJ 250 ML IV SCH (08:47)
--- NOTE | 2016-11-02 10:10 | PD.ONC.PN ---
Subjective Subjective Remarks Tmax 101.3 overnight. Patient resting in room in nad. Slept well overnight. No complaints. Objective Data Date Time Temp Pulse Resp B/P (MAP) Pulse Ox O2 Delivery O2 Flow Rate FiO2 11/02/16 08:00 97.7 117 20 120/64 (82) 99 11/02/16 04:44 16 11/02/16 04:00 100.3 120 22 108/74 (85) 96 11/02/16 00:00 100.3 119 20 95/49 (64) 100 11/01/16 20:00 101.3 120 22 104/59 (74) 97 11/01/16 20:00 16 11/01/16 16:00 100.5 111 22 117/62 (80) 99 11/01/16 12:00 99.0 109 18 111/57 (75) 99 11/02/16 11/02/16 11/02/16 07:00 15:00 23:00 Intake Total 240 ml Balance 240 ml Result Diagram: 11/02/1630 11/02/16 0630 Laboratory Results Laboratory Tests Test 11/02/16 06:30 White Blood Count 4.7 TH/MM3 Red Blood Count 2.53 MIL/MM3 Hemoglobin 8.2 GM/DL Hematocrit 22.8 % Mean Corpuscular Volume 90.0 FL Mean Corpuscular Hemoglobin 32.2 PG Mean Corpuscular Hemoglobin Concent 35.8 % Red Cell Distribution Width 18.6 % Platelet Count 22 TH/MM3 Mean Platelet Volume 7.5 FL Neutrophils (%) (Auto) 86.4 % Lymphocytes (%) (Auto) 2.6 % Monocytes (%) (Auto) 10.7 % Eosinophils (%) (Auto) 0.2 % Basophils (%) (Auto) 0.1 % Neutrophils # (Auto) 4.1 TH/MM3 Lymphocytes # (Auto) 0.1 TH/MM3 Monocytes # (Auto) 0.5 TH/MM3 Eosinophils # (Auto) 0.0 TH/MM3 Basophils # (Auto) 0.0 TH/MM3 CBC Comment AUTO DIFF Differential Total Cells Counted 100 Neutrophils % (Manual) 56 % Band Neutrophils % 33 % Lymphocytes % 4 % Monocytes % 5 % Neutrophils # (Manual) 4.3 TH/MM3 Metamyelocytes 1 % Myelocytes 1 % Differential Comment FINAL DIFF MANUAL Toxic Granulation 1+ Platelet Estimate LOW Platelet Morphology Comment NORMAL Haptoglobin 294 MG/DL Blood Urea Nitrogen 20 MG/DL Creatinine 1.08 MG/DL Random Glucose 118 MG/DL Calcium Level 7.8 MG/DL Sodium Level 139 MEQ/L Potassium Level 4.1 MEQ/L Chloride Level 108 MEQ/L Carbon Dioxide Level 21.0 MEQ/L Anion Gap 10 MEQ/L Estimat Glomerular Filtration Rate 52 ML/MIN Total Bilirubin 1.6 MG/DL Direct Bilirubin 0.7 MG/DL Indirect Bilirubin 0.9 MG/DL Aspartate Amino Transf (AST/SGOT) 11 U/L Alanine Aminotransferase (ALT/SGPT) 14 U/L Alkaline Phosphatase 67 U/L Lactate Dehydrogenase 179 U/L Total Protein 6.1 GM/DL Albumin 2.6 GM/DL Culture Results Microbiology Date/Time Source Procedure Growth Status 11/01/16 15:40 Blood Peripheral Aerobic Blood Culture Pending Received 11/01/16 15:40 Blood Peripheral Anaerobic Blood Culture Pending Received 11/01/16 06:05 Sputum Expectorated Sputum Gram Stain - Final Resulted 11/01/16 06:05 Sputum Expectorated Sputum Sputum Culture Pending Resulted Administered Medications Medications (Trade) Dose Ordered Sig/Lisa Route PRN Reason Start Time Stop Time Status Last Admin Dose Admin Acetaminophen (Tylenol) 650 mg Q4H PRN PO SEE LABEL COMMENTS 10/31/16 18:45 11/01/16 02:45 Acetaminophen (Tylenol) 650 mg Q4H PRN PO PAIN SCALE 1-3 OR TEMP> 100.5F 10/31/16 18:45 11/01/16 09:37 Oxycodone HCl (Roxicodone) 5 mg Q3H PRN PO PAIN SCALE 4 TO 7 10/31/16 18:45 11/01/16 18:56 Oxycodone HCl (Roxicodone) 10 mg Q3H PRN PO PAIN SCALE 8 TO 10 10/31/16 18:45 11/02/16 03:44 Filgrastim 480 mcg/Dextrose 50 ml @ 100 mls/hr DAILY@14 IV 10/31/16 21:00 11/01/16 14:37 Levothyroxine Sodium (Synthroid) 25 mcg DAILY@0600 PO 11/01/16 06:00 11/02/16 03:43 Sodium Chloride 1,000 ml @ 84 mls/hr [id number] IV 11/01/16 11:15 11/01/16 23:10 Objective Remarks GENERAL: Middle aged female sitting up in bed in nad. SKIN: Warm and dry. HEAD: Normocephalic. EYES: No injection or drainage. NECK: Supple, trachea midline. CARDIOVASCULAR: Regular rate and rhythm RESPIRATORY: Breath sounds equal bilaterally. No accessory muscle use. GASTROINTESTINAL: Abdomen soft, non-tender, nondistended. EXTREMITIES: No cyanosis NEUROLOGICAL: aox3. normal speech. moving all extremities. Assessment/Plan Problem List: (1) Neutropenic fever ICD Codes: D70.9 - Neutropenia, unspecified; R50.81 - Fever presenting with conditions classified elsewhere Plan: 11/01: stop Vanco and Cefepime. start Levaquin. d/c neutropenic precautions. can d/c home when afebrile x 24 hours. 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 July 02 to August 24--treated with combined concurrent radiation and weekly carboplatin, Taxol chemotherapy developed worsening of peripheral neuropathy with the Taxol chemotherapy. last 2 cycles not given. September 14--consolidation carboplatin and Gemzar chemotherapy-->developed severe myelosuppression from the chemotherapy. October 17--chemotherapy changed to carboplatin and etoposide-->tolerated the treatment well. October 31--admitted with neutropenic fever, severe pancytopenia (3) Pancytopenia ICD Codes: D61.818 - Other pancytopenia Plan: --Severe thrombocytopenia from the chemotherapy. --Severe anemia from the chemotherapy. --on Neupogen --s/p 2 units pRBC Assessment 61y/o female admitted with neutropenic fever, severe anemia and severe thrombocytopenia. h/o Anxiety. B12 deficiency. Crohn's disease.Hypercholesterolemia. Hypothyroidism. Peripheral neuropathy. Non-small cell lung cancer. History of non-Hodgkin's lymphoma treated in 2009. Attending Statement feels better Denies fever or chills. Neutropenia has resolved. fever may be due to Drugs. D/C vanco and cefepime. start PO levaquin. If no fever x 24 hrs then ok to d/c home. The exam, history, and the medical decision-making described in the above note were completed with the assistance of the mid-level provider. I reviewed and agree with the findings presented. I attest that I had a [id number] encounter with the patient on the same day, and personally performed and documented my assessment and findings in the medical record. Shakira Manuel Nov 02, 2016 10:10 Jose Patel MD Nov 02, 2016 12:12
[2016-11-02 12:00] VITALS: BP 131/68; PULSE 116; RESP 20; TEMP 99.3; O2SAT 98
[2016-11-02] MEDS: LEVOFLOXACIN 750 MG TAB PO SCH (12:51)
[2016-11-02] MEDS: FILGRASTIM INJ 480 MCG in DEXTROSE 5% IN WATER INJ 48.4 ML IV SCH ×2 (12:52)
[2016-11-02] MEDS: SODIUM CHLOR 0.9% 1000 ML INJ 1,000 ML IV SCH ×2 (12:52→23:00)
[2016-11-02 16:00] VITALS: BP 103/62; PULSE 103; RESP 20; TEMP 100; O2SAT 98
[2016-11-02 20:15] VITALS: BP_SYST 111; BP_SYST 157; BP_SYST 197; BP_DIAS 120; BP_DIAS 53; BP_DIAS 85; PULSE 117; RESP 18; TEMP 98; O2SAT 98
[2016-11-03] VITALS: BP 124/63; PULSE 132; RESP 20; TEMP 97.2; O2SAT 98
[2016-11-03 04:00] VITALS: BP 103/58; PULSE 101; RESP 18; TEMP 97.3; O2SAT 94
[2016-11-03] MEDS: LEVOTHYROXINE SODIUM 25 MCG TAB PO SCH (05:29)
[2016-11-03 07:06] LABS: AUTOMATED NEUTROPHIL # 5.3 TH/MM3 (1.8-7.7); BASOPHIL % 0.3 % (0.0-2.0); EOSINOPHIL % 0.3 % (0.0-4.0); HEMATOCRIT 21.9 % (35.0-46.0); LYMPH % 3.9 % (9.0-44.0); LYMPHOCYTE # 0.2 TH/MM3 (1.0-4.8); MEAN CELL VOLUME 91.4 FL (80.0-100.0); MEAN CORPUSCULAR HEMOGLOBIN 31.8 PG (27.0-34.0); MEAN CORPUSCULAR HGB CONC 34.8 % (32.0-36.0); MONO % 8.8 % (0.0-8.0); NEUT % 86.7 % (16.0-70.0); PLATELET COUNT 24 TH/MM3 (150-450); RED BLOOD COUNT 2.39 MIL/MM3 (4.00-5.30); WHITE BLOOD COUNT 6.1 TH/MM3 (4.0-11.0)
[2016-11-03 07:16] LABS: HEMO FLAGS AUTO DIFF
[2016-11-03 07:20] LABS: BICARBONATE 21.9 MEQ/L (21.0-32.0); POTASSIUM 3.8 MEQ/L (3.5-5.1)
[2016-11-03 07:30] VITALS: BP 111/57; PULSE 99; RESP 20; TEMP 96.7; O2SAT 95
[2016-11-03] MEDS ORDERED: ACETAMINOPHEN 325 MG TAB PO PRN (09:15)
[2016-11-03] MEDS ORDERED: SODIUM CHLOR 0.9% 250 ML INJ 250 ML IV ONE (09:15)
[2016-11-03] MEDS ORDERED: diphenhydrAMINE HCL 25 MG CAP PO PRN (09:15)
--- NOTE | 2016-11-03 09:19 | PD.ONC.PN ---
Subjective Subjective Remarks Afebrile "I feel so much better" Hoping to go home today No acute complaints Objective Data Date Time Temp Pulse Resp B/P (MAP) Pulse Ox O2 Delivery O2 Flow Rate FiO2 11/03/16 04:00 97.3 101 18 103/58 (73) 94 11/03/16 01:13 16 11/03/16 00:00 97.2 132 20 124/63 (83) 98 11/02/16 20:15 98.0 117 18 111/53 (72) 98 157/85 (109) 197/120 (145) 11/02/16 16:00 100.0 103 20 103/62 (76) 98 11/02/16 12:00 99.3 116 20 131/68 (89) 98 11/03/16 11/03/16 11/03/16 07:00 15:00 23:00 Intake Total 600 ml Balance 600 ml Result Diagram: 11/03/16 0603 11/03/16 0603 Laboratory Results Laboratory Tests Test 11/03/16 06:03 White Blood Count 6.1 TH/MM3 Red Blood Count 2.39 MIL/MM3 Hemoglobin 7.6 GM/DL Hematocrit 21.9 % Mean Corpuscular Volume 91.4 FL Mean Corpuscular Hemoglobin 31.8 PG Mean Corpuscular Hemoglobin Concent 34.8 % Red Cell Distribution Width 18.0 % Platelet Count 24 TH/MM3 Mean Platelet Volume 9.2 FL Neutrophils (%) (Auto) 86.7 % Lymphocytes (%) (Auto) 3.9 % Monocytes (%) (Auto) 8.8 % Eosinophils (%) (Auto) 0.3 % Basophils (%) (Auto) 0.3 % Neutrophils # (Auto) 5.3 TH/MM3 Lymphocytes # (Auto) 0.2 TH/MM3 Monocytes # (Auto) 0.5 TH/MM3 Eosinophils # (Auto) 0.0 TH/MM3 Basophils # (Auto) 0.0 TH/MM3 CBC Comment AUTO DIFF Blood Urea Nitrogen 21 MG/DL Creatinine 0.93 MG/DL Random Glucose 117 MG/DL Calcium Level 7.5 MG/DL Sodium Level 139 MEQ/L Potassium Level 3.8 MEQ/L Chloride Level 109 MEQ/L Carbon Dioxide Level 21.9 MEQ/L Anion Gap 8 MEQ/L Estimat Glomerular Filtration Rate 61 ML/MIN Culture Results Microbiology Date/Time Source Procedure Growth Status 11/01/16 15:40 Blood Peripheral Aerobic Blood Culture - Preliminary NO GROWTH IN 1 DAY Resulted 11/01/16 15:40 Blood Peripheral Anaerobic Blood Culture - Preliminary NO GROWTH IN 1 DAY Resulted 11/01/16 06:05 Sputum Expectorated Sputum Gram Stain - Final Resulted 11/01/16 06:05 Sputum Expectorated Sputum Sputum Culture - Preliminary HEAVY GROWTH NORMAL RESPIRATORY RSOENDA... Resulted Administered Medications Medications (Trade) Dose Ordered Sig/Lisa Route PRN Reason Start Time Stop Time Status Last Admin Dose Admin Acetaminophen (Tylenol) 650 mg Q4H PRN PO SEE LABEL COMMENTS 10/31/16 18:45 11/01/16 02:45 Acetaminophen (Tylenol) 650 mg Q4H PRN PO PAIN SCALE 1-3 OR TEMP> 100.5F 10/31/16 18:45 11/01/16 09:37 Oxycodone HCl (Roxicodone) 5 mg Q3H PRN PO PAIN SCALE 4 TO 7 10/31/16 18:45 11/01/16 18:56 Oxycodone HCl (Roxicodone) 10 mg Q3H PRN PO PAIN SCALE 8 TO 10 10/31/16 18:45 11/03/16 00:05 Levothyroxine Sodium (Synthroid) 25 mcg DAILY@0600 PO 11/01/16 06:00 11/03/16 05:29 Sodium Chloride 1,000 ml @ 84 mls/hr [id number] IV 11/01/16 11:15 11/02/16 23:00 Levofloxacin (Levaquin) 750 mg Q24H PO 11/02/16 12:00 11/02/16 12:51 Objective Remarks GENERAL: Middle aged female sitting up on side of bed in no acute distress SKIN: Warm and dry. HEAD: Normocephalic. EYES: No injection or drainage. NECK: Supple, trachea midline. CARDIOVASCULAR: Regular rate and rhythm. Mildly tachycardic RESPIRATORY: Breath sounds equal bilaterally. No accessory muscle use. GASTROINTESTINAL: Abdomen soft, non-tender, nondistended. EXTREMITIES: No cyanosis. No edema NEUROLOGICAL: Moving all extremities. No obvious focal deficit. 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 July 02 to August 24--treated with combined concurrent radiation and weekly carboplatin, Taxol chemotherapy developed worsening of peripheral neuropathy with the Taxol chemotherapy. last 2 cycles not given. September 14--consolidation carboplatin and Gemzar chemotherapy-->developed severe myelosuppression from the chemotherapy. October 17--chemotherapy changed to carboplatin and etoposide-->tolerated the treatment well. October 31--admitted with neutropenic fever, severe pancytopenia (3) Pancytopenia ICD Codes: D61.818 - Other pancytopenia Plan: --Severe thrombocytopenia from the chemotherapy. --Severe anemia from the chemotherapy. --on Neupogen --s/p 2 units pRBC Assessment 61y/o female admitted with neutropenic fever, severe anemia and severe thrombocytopenia. h/o Anxiety. B12 deficiency. Crohn's disease.Hypercholesterolemia. Hypothyroidism. Peripheral neuropathy. Non-small cell lung cancer. History of non-Hodgkin's lymphoma treated in 2009. Plan 1. Stop Neupogen 2. Will transfuse 1 unit packed red blood cells today 3. Continue Levaquin 4. We will discharge patient later today after blood transfused. 5. Followup in clinic. Attending Statement The exam, history, and the medical decision-making described in the above note were completed with the assistance of the mid-level provider. I reviewed and agree with the findings presented. I attest that I had a [id number] encounter with the patient on the same day, and personally performed and documented my assessment and findings in the medical record. Pt seen and examined. Feeling better, less tachycardic. Dehydration improved, bun/cr improve. Anticipate DC after transfusion PRBC. Pt has fu appt w/ Dr. Patel. Advised to monitor for fevers. Paulina Mcmahon Nov 03, 2016 09:19 Misty Almonte MD Nov 03, 2016 12:30
[2016-11-03 11:30] VITALS: BP 128/55; PULSE 91; RESP 20; TEMP 97.8
[2016-11-03 11:47] LABS: BANDS 13 % (0-6); NEUTROPHIL # MANUAL DIFF 5.4 TH/MM3 (1.8-7.7); POLYS (SEG NEUTROPHILS) 76 % (16-70); WBC DIFF SAMPLE 100
[2016-11-03 11:48] LABS: OVALOCYTES 1+ (NORMAL); PLATELET ESTIMATE SMEAR LOW (NORMAL); PLATELET MORPHOLOGY NORMAL (NORMAL); SCAN/DIFF FINAL DIFF MANUAL; TEARDROP RBCS 1+ (NORMAL)
[2016-11-03] MEDS ORDERED: LEVA750T9 PO (12:05)
--- NOTE | 2016-11-03 12:05 | HHI.DCPOC ---
Discharge Care Plan Diagnosis: (1) Neutropenic fever Your Health Problems Are: Shortness of Breath Goals to Promote Your Health * To prevent worsening of your condition and complications * To maintain your health at the optimal level Directions to Meet Your Goals Take your medications as prescribed Follow your dietary instruction Follow activity as directed Keep your appointments as scheduled Take your immunizations and boosters as scheduled If your symptoms worsen call your PCP, if no PCP go to Urgent Care Center or Emergency Room Smoking is Dangerous to Your Health. Avoid second hand smoke Call the 24-hour hour crisis hotline for domestic abuse at Paulina Mcmahon Nov 03, 2016 12:05
--- NOTE | 2016-11-03 12:10 | HHI.DS ---
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 July 02 to August 24--treated with combined concurrent radiation and weekly carboplatin, Taxol chemotherapy developed worsening of peripheral neuropathy with the Taxol chemotherapy. last 2 cycles not given. September 14--consolidation carboplatin and Gemzar chemotherapy-->developed severe myelosuppression from the chemotherapy. October 17--chemotherapy changed to carboplatin and etoposide-->tolerated the treatment well. October 31--admitted with neutropenic fever, severe pancytopenia CBC/BMP: 11/03/16 0603 11/03/16 0603 Significant Findings Laboratory Tests Test 11/01/16 03:00 11/01/16 09:45 11/02/16 06:30 11/03/16 06:03 Urine Ketones TRACE mg/dL (NEG) Urine Mucus FEW /lpf (OCC) White Blood Count 2.0 TH/MM3 (4.0-11.0) Red Blood Count 2.60 MIL/MM3 (4.00-5.30) 2.53 MIL/MM3 (4.00-5.30) 2.39 MIL/MM3 (4.00-5.30) Hemoglobin 8.3 GM/DL (11.6-15.3) 8.2 GM/DL (11.6-15.3) 7.6 GM/DL (11.6-15.3) Hematocrit 23.2 % (35.0-46.0) 22.8 % (35.0-46.0) 21.9 % (35.0-46.0) Red Cell Distribution Width 17.8 % (11.6-17.2) 18.6 % (11.6-17.2) 18.0 % (11.6-17.2) Platelet Count 25 TH/MM3 (150-450) 22 TH/MM3 (150-450) 24 TH/MM3 (150-450) Neutrophils (%) (Auto) 79.9 % (16.0-70.0) 86.4 % (16.0-70.0) 86.7 % (16.0-70.0) Lymphocytes (%) (Auto) 5.6 % (9.0-44.0) 2.6 % (9.0-44.0) 3.9 % (9.0-44.0) Monocytes (%) (Auto) 14.2 % (0.0-8.0) 10.7 % (0.0-8.0) 8.8 % (0.0-8.0) Neutrophils # (Auto) 1.6 TH/MM3 (1.8-7.7) Lymphocytes # (Auto) 0.1 TH/MM3 (1.0-4.8) 0.1 TH/MM3 (1.0-4.8) 0.2 TH/MM3 (1.0-4.8) Band Neutrophils % 33 % (0-6) 33 % (0-6) 13 % (0-6) Lymphocytes % 8 % (9-44) 4 % (9-44) 6 % (9-44) Monocytes % 13 % (0-8) Neutrophils # (Manual) 1.6 TH/MM3 (1.8-7.7) Nucleated Red Blood Cells 2 /100 WBC (0-0) Platelet Estimate LOW (NORMAL) LOW (NORMAL) LOW (NORMAL) Ovalocytes 1+ (NORMAL) 1+ (NORMAL) Blood Urea Nitrogen 20 MG/DL (7-18) 20 MG/DL (7-18) 21 MG/DL (7-18) Creatinine 1.09 MG/DL (0.50-1.00) 1.08 MG/DL (0.50-1.00) Random Glucose 114 MG/DL (74-106) 118 MG/DL (74-106) 117 MG/DL (74-106) Calcium Level 8.0 MG/DL (8.5-10.1) 7.8 MG/DL (8.5-10.1) 7.5 MG/DL (8.5-10.1) Estimat Glomerular Filtration Rate 51 ML/MIN (>89) 52 ML/MIN (>89) 61 ML/MIN (>89) Total Bilirubin 3.1 MG/DL (0.2-1.0) 1.6 MG/DL (0.2-1.0) Direct Bilirubin 0.9 MG/DL (0.0-0.2) 0.7 MG/DL (0.0-0.2) Indirect Bilirubin 2.2 MG/DL (0.0-0.8) 0.9 MG/DL (0.0-0.8) Aspartate Amino Transf (AST/SGOT) 13 U/L (15-37) 11 U/L (15-37) Total Protein 6.2 GM/DL (6.4-8.2) 6.1 GM/DL (6.4-8.2) Albumin 2.9 GM/DL (3.4-5.0) 2.6 GM/DL (3.4-5.0) Myelocytes 1 % (0-0) Toxic Granulation 1+ (NORMAL) Haptoglobin 294 MG/DL (30-200) Chloride Level 108 MEQ/L (98-107) 109 MEQ/L (98-107) Neutrophils % (Manual) 76 % (16-70) Tear Drop Cells 1+ (NORMAL) PE at Discharge See PE in progress note on 11/03/16 Hospital Course The patient was admitted with neutropenic fever and started on vancomycin and cefepime. 24 hours ago she was switched to Levaquin by mouth. She has remained afebrile and is feeling better. Her counts have also been low due to the chemotherapy that she received earlier this month. We will transfuse 1 unit packed red blood cells prior to discharge today. Pt Condition on Discharge: Good Discharge Disposition: Discharge Home Discharge Instructions DIET: Follow Instructions for: As Tolerated, No Restrictions Activities you can perform: Regular-No Restrictions Additional Information Please keep appt to see Dr Patel in clinic. Paulina Mcmahon Nov 03, 2016 12:10
[2016-11-03] MEDS: LEVOFLOXACIN 750 MG TAB PO SCH (12:42)
[2016-11-03 13:50] VITALS: BP 108/62; PULSE 95; RESP 18; TEMP 97.9
== END 2016-11-03 17:41 | disposition home or self-care (01) | DRG 809 ==
LOC: HOCB 14:14
PROVIDERS: ADMIT Internal Medicine Hematology & Oncology; ATTEND Internal Medicine Hematology & Oncology
PROC: 30233R1 Transfusion of Nonautologous Platelets into Peripheral Vein, Percutaneous Approach (ICD-10-PCS; principal; 2016-10-31)
PROC: 30233N1 Transfusion of Nonautologous Red Blood Cells into Peripheral Vein, Percutaneous Approach (ICD-10-PCS; 2016-10-31)
DX: D70.9 Neutropenia, unspecified (principal); K50.90 Crohn's disease, unspecified, without complications; C34.90 Malignant neoplasm of unspecified part of unspecified bronchus or lung; G62.0 Drug-induced polyneuropathy; E53.8 Deficiency of other specified B group vitamins; E86.0 Dehydration; F41.9 Anxiety disorder, unspecified; R50.81 Fever presenting with conditions classified elsewhere; E78.00 Pure hypercholesterolemia, unspecified; E03.9 Hypothyroidism, unspecified; T45.1X5A Adverse effect of antineoplastic and immunosuppressive drugs, initial encounter; Z85.72 Personal history of non-Hodgkin lymphomas
CPT/HCPCS: 36430; 36591; 71020; 80048; 80076; 81001; 83010; 83615; 85007; 85027; 86850; 86900; 86901; 86920; 87040; 87070; 87086; 87205; 96365; 96367; J0692; J0780; J1442; J1642; J3370; J7030; J7050; P9016; P9035

== ENCOUNTER 2018-01-30 11:13 | Inpatient (IN) ==
[2018-01-30] MEDS ORDERED: ceFAZolin 1 GM Premix Inj 1 GM/50 ML PIGGYBACK IV.SIG ONE (12:16)
--- NOTE | 2018-01-30 12:22 | XR ---
EXAM DATE: 01/30/2018 12:16 PM EST AGE/SEX: 62 years / Female INDICATIONS: Evaluate for pneumonia, pneumothorax, or communicable disease. Pre-op ileostomy. CLINICAL DATA: This is the patient's initial encounter. Patient reports that signs and symptoms have been present for 1 day and indicates a pain score of 0/10. MEDICAL/SURGICAL HISTORY: . Carcinoma, lung. Chronic obstructive pulmonary disease. . Appende ctomy. Infusaport. Hernia repair. Radiation therapy right lung. COMPARISON: [facility], CT CHEST W/ CONTRAST, 09/10/2017. C, CHEST PA & LAT, 11/01/2016. . FINDINGS: Portable AP view of the chest demonstrates grossly normal size cardiac silhouette with rightward shif t of the mediastinum. Left lung is hyperinflated. There is complete opacification the right hemithora x with signs of volume loss. Left lung demonstrates no airspace consolidation and there is no pneumot horax. The bones and soft tissues demonstrate no acute abnormality. There are no imaging findings or history provided to indicate prior pneumonectomy. CONCLUSION: Complete opacification of the right hemithorax with signs of volume loss. This is likely secondary to complete collapse of the right lung. Left lung is clear. Electronically signed by: Jim Becerril MD Board Certified Radiologist 01/30/2018 12:21 PM EST
[2018-01-30] MEDS ORDERED: Metoprolol Tartrate 25 MG Tablet PO SCH (12:38)
[2018-01-30] MEDS ORDERED: Chlorhexidine Gluconate 2% 1 Pack (2 Cloths) TOPICAL SCH (12:38)
[2018-01-30 12:49] LABS: Baso # (Auto) 0.1 th/mm3 (0.0-0.2); Baso % (Auto) 0.9 % (0.0-2.0); Eos # (Auto) 0.1 th/mm3 (0.0-0.4); Eos % (Auto) 1.2 % (0.0-4.0); Hematocrit 38.4 % (35.0-46.0); Hemoglobin 13.7 gm/dL (11.6-15.3); Lymph # (Auto) 0.8 th/mm3 (1.0-4.8); Lymph % (Auto) 8.6 % (9.0-44.0); Mean Corpuscular HGB Conc 35.5 % (32.0-36.0); Mean Corpuscular Hemoglobin 32.3 pg (27.0-34.0); Mean Platelet Volume 7.8 fL (7.0-11.0); Mono # (Auto) 0.5 th/mm3 (0.0-0.9); Mono % (Auto) 5.4 % (0.0-8.0); Neut # (Auto) 8.1 th/mm3 (1.8-7.7); Neut % (Auto) 83.9 % (16.0-70.0); Platelet Count 200 th/mm3 (150-450); Red Blood Count 4.22 mil/mm3 (4.00-5.30); Red Cell Distribution Width 14.3 % (11.6-17.2); White Blood Count 9.7 th/mm3 (4.0-11.0)
[2018-01-30 12:56] LABS: Activated Partial Thrombo Time 26.6 sec (23.4-31.7); INR 1.1 Ratio; Prothrombin Time 10.7 sec (9.8-11.6)
[2018-01-30] MEDS ORDERED: Dextrose 5%/NaCl 0.9% Inj 1,000 ML IV.SIG SCH (13:00)
[2018-01-30] MEDS ORDERED: Sodium Chlor 0.9% Inj 500 ML IV.SIG SCH (13:00)
[2018-01-30] MEDS ORDERED: ceFAZolin 1 GM Premix Inj 1 GM/50 ML PIGGYBACK IV.SIG SCH (13:00)
[2018-01-30] MEDS ORDERED: HYDROmorphone PF Inj 1 MG/ML Ampul ONE (13:05)
[2018-01-30 13:08] LABS: Alanine Aminotransferase 18 U/L (10-53); Albumin 3.6 g/dL (3.4-5.0); Anion Gap 8 meq/L (5-15); Aspartate Aminotransferase 13 U/L (15-37); Blood Urea Nitrogen 13 mg/dL (7-18); Calcium 9.1 mg/dL (8.5-10.1); Carbon Dioxide 22.9 meq/L (21.0-32.0); Chloride 110 meq/L (98-107); Glomerular Filtration Rate 47 mL/min (>89); Potassium 4.4 meq/L (3.5-5.1); Sodium 141 meq/L (136-145)
[2018-01-30 13:09] LABS: Bacteria,Urine Few /hpf; Bilirubin,Urine Negative (Negative); Color,Urine Yellow (Yellw/Straw); Glucose,Urine (UA) Negative (Negative); Hyaline Casts,Urine 25 /lpf (0-3); Leukocyte Esterase,Urine Large (Negative); Mucus,Urine Moderate /lpf (Occasional); Nitrite,Urine Negative (Negative); Specific Gravity,Urine 1.019 (1.002-1.035); Squamous Epithelial Cell,Urine 13 /hpf (0-5)
[2018-01-30 13:10] LABS: Clarity,Urine Hazy (Clear)
[2018-01-30 13:11] LABS: Alkaline Phosphatase 110 U/L (45-117); Total Protein 7.3 g/dL (6.4-8.2)
--- NOTE | 2018-01-30 16:27 | P.PNWCN ---
Wound Care Nurse Consult Description: Received new ostomy teaching consult for R lower quadrant Abdominal stoma marking for surgery from Doctor Swan. Communicated with: summer associate nurse same day surgery Additional information: Patient is seen today in same day surgery for marking of relocation of ileostomy stoma to RLE of abdomen. Patient is laying on stretcher upon publications writer's arrival. Observed patient's abdominal area LLQ is noted with present ileostomy and pouch in place.Location of rectus muscle was assessed with patient cough. Patient has scar that is located transversely on her lower abdomen from previous surgery. Marked two stoma sites on RLQ. The first site is marked ~2 inches laterally and inferiorly to umbilicus. Second site is marked more laterally on RLQ. Assessed new stoma site with wafer fitting. Stoma sites are located on the infraumbilical fat mound away from scar tissue, skin folds and avoiding patient's belt line. Patient tolerated marking procedure well.
[2018-01-30] MEDS ORDERED: Sugammadex Inj 200 MG/2 ML Vial IV.PUSH ONE (17:09)
[2018-01-30] MEDS ORDERED: Potassium Chlor 20 mEq Premix 20 MEQ/100 ML PIGGYBACK IV.SIG PRN (17:14)
[2018-01-30] MEDS ORDERED: Potassium Chlor 40 mEq Premix 40 MEQ/100 ML PIGGYBACK IV.SIG PRN (17:14)
[2018-01-30] MEDS ORDERED: Naloxone Inj 0.4 MG/ML Vial IV.PUSH PRN (17:24)
[2018-01-30] MEDS ORDERED: Morphine Inj 30 MG/30 ML PCA.VIAL PCA PRN (17:24)
[2018-01-30] MEDS ORDERED: fentaNYL Citrate Inj 100 MCG/2 ML Ampul ONE ×2 (17:28)
[2018-01-30] MEDS ORDERED: KCL 20 mEq/D5W/LR Inj 1,000 ML ONE (17:42)
[2018-01-30] MEDS ORDERED: Morphine Inj 30 MG/30 ML PCA.VIAL PCA ONE (17:42)
[2018-01-30 17:45] LABS: Baso % (Auto) 0.4 % (0.0-2.0); Eos % (Auto) 0.3 % (0.0-4.0); Hematocrit 35.1 % (35.0-46.0); Hemoglobin 12.2 gm/dL (11.6-15.3); Lymph # (Auto) 0.4 th/mm3 (1.0-4.8); Lymph % (Auto) 4.5 % (9.0-44.0); Mean Corpuscular HGB Conc 34.9 % (32.0-36.0); Mean Corpuscular Hemoglobin 32.3 pg (27.0-34.0); Mean Corpuscular Volume 92.4 fL (80.0-100.0); Mean Platelet Volume 7.6 fL (7.0-11.0); Mono # (Auto) 0.1 th/mm3 (0.0-0.9); Mono % (Auto) 1.2 % (0.0-8.0); Neut # (Auto) 9.3 th/mm3 (1.8-7.7); Neut % (Auto) 93.6 % (16.0-70.0); Platelet Count 175 th/mm3 (150-450); Red Blood Count 3.79 mil/mm3 (4.00-5.30); Red Cell Distribution Width 14.5 % (11.6-17.2); White Blood Count 9.9 th/mm3 (4.0-11.0)
[2018-01-30] MEDS: KCL 20 mEq/D5W/LR Inj 1,000 ML IV.CONT SCH (17:46)
[2018-01-30 18:09] LABS: Calcium 7.4 mg/dL (8.5-10.1); Carbon Dioxide 25.3 meq/L (21.0-32.0)
[2018-01-30 18:26] LABS: Albumin 2.8 g/dL (3.4-5.0); Calcium-Albumin Corrected 8.4 mg/dL (8.5-10.1)
--- NOTE | 2018-01-30 19:24 | MP ---
cc: Jim Swan MD DATE OF OPERATION: 01/30/2018 PREOPERATIVE DIAGNOSIS: Left-sided large paraileostomy hernia. POSTOPERATIVE DIAGNOSES: 1. Extensive abdominal adhesions. 2. Left-sided paraileostomy hernia. PROCEDURE PERFORMED: 1. Exploratory laparotomy. 2. Extensive lysis of adhesions taking at least 1-1/2 hours. 3. Takedown of ileostomy and relocation. 4. Repair of large ileostomy hernia. ANESTHESIA: General endotracheal. SURGEON: Jim Swan MD ASSIST: Mihai Ortiz MD ESTIMATED BLOOD LOSS: 100 mL. OPERATING TIME: 2 hours and 30 minutes. OPERATIVE FINDINGS: This patient is well known to me. I have taken care of her for 30 years. She has had Crohn's disease in the past. She has undergone multiple surgeries including a subtotal colectomy, previous ileostomy, previous ileostomy hernia repair with relocation to the left side of the abdomen, last surgery done was 21 years ago. 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 Nevertheless, she has a large paraileostomy hernia. She became quite obese. She developed a lymphoma about 5 years ago, treated for that, and then developed a lung cancer treated for that, and in remission with both cancers. The ileostomy hernia is bothering her because of pouching of her ileostomy is becoming more difficult. For this reason, she requested surgery and we recommended relocation. Exploration of the abdominal cavity revealed dense abdominal adhesions throughout the whole abdomen and small bowel. Eventually, the small bowel was all mobilized and we were able to relocate the ileostomy in the right upper quadrant and a portion of the distal small bowel was excised. No enterotomies were created during the case. Several small serosal tears were reinforced with interrupted 3-0 Vicryl sutures. Closure of the paraileostomy hernia was done in a single layer without mesh. The liver could be seen at one point in the procedure in the right upper quadrant, just the inferior portion, but no other organs were seen other than the small bowel and the stomach. OPERATIVE TECHNIQUE: The patient was placed on the table in supine position. After adequate general endotracheal anesthesia, the legs were placed in the perineal lithotomy position and the abdomen and perineum were prepped and draped in the usual manner, after closing the mucosa of the ileostomy with a running 3-0 Vicryl suture. Transverse supraumbilical skin incision was made in her previous incision sites and taken down through the subcutaneous tissue. She was quite obese and the fascia on the left side of her abdomen revealed no rectus muscle whatsoever; it was all replaced with fat. On the right side, she did have 2 layers of rectus fascia anterior and posterior with some rectus muscle. The abdominal cavity was entered and extensive lysis of adhesions was undertaken with sharp dissection and electrocautery. Once the adhesions were freed, the small bowel was dissected free from the paraileostomy hernia sac and then elliptical incision was made around the left lower quadrant ileostomy and the ileostomy was removed from the subcutaneous tissue. The small bowel was further mobilized to allow recreation of the stoma in the right upper quadrant. We originally thought that we would do this in the right lower quadrant; however, she had a previous ileostomy there and there was an area of mesh and the surface was not very flat due to her size. For this reason, we decided to make the ileostomy in the right upper quadrant in a virgin area of the abdominal wall. A disk of skin was removed for the stoma site and some fat and the anterior rectus sheath was incised vertically and the rectus muscle was split and the posterior rectus sheath was incised vertically with electrocautery. The end ileostomy was brought up through this area. Next, the paraileostomy hernia was closed internally using a single-stranded #1 Prolene suture in a simple running manner. We simply could only close 1 layer, it was closed vertically. The hernia sac was dissected free with electrocautery. The hernia was irrigated thoroughly with a liter of saline solution. The subcutaneous tissue was approximated with several 3-0 Vicryl sutures and then the skin was closed with skin vinnie. We next placed the small bowel in the abdominal cavity in an grade recorder manner and closed the abdominal cavity in 2 layers on the right side using a double-stranded #1 PDS for the posterior rectus sheath and then the anterior rectus sheath on the right side was closed and then on the left side it was imbricated to try to achieve a 2-layer closure there. Once this was done, the fascial layers had been irrigated with saline solution prior to closing the external fascia, and then the subcutaneous tissue was irrigated with a liter of saline solution, as well, and because of her obesity, the wound was closed with skin vinnie. Next, the ileostomy was matured with a 1 inch nipple and it was matured with interrupted 3-0 Vicryl sutures. A 57 mm appliance was placed and dressings were applied. Sponge, needle and instrument counts were reported as correct. Estimated blood loss was 100 mL. Operating time was 2 hours and 30 minutes. The patient tolerated the procedure well and left the operating room in good condition. MD ROSALIA Marshall/scarlet , 05:51 PM , 06:03 PM
[2018-01-30] MEDS: Metoprolol Tartrate 25 MG Tablet PO SCH (20:05)
[2018-01-30] MEDS: Nortriptyline 25 MG Capsule PO SCH (20:06)
[2018-01-30] MEDS ORDERED: Zolpidem Tartrate 5 MG Tablet PO PRN (21:00)
[2018-01-30] MEDS: ceFAZolin 2 GM Premix Inj 2 GM/50 ML PIGGYBACK IV.SIG SCH (23:10)
[2018-01-31] MEDS: KCL 20 mEq/D5W/LR Inj 1,000 ML IV.CONT SCH ×4 (00:26→19:12)
[2018-01-31 05:19] LABS: Baso % (Auto) 0.3 % (0.0-2.0); Eos % (Auto) 0.1 % (0.0-4.0); Hematocrit 33.2 % (35.0-46.0); Hemoglobin 11.5 gm/dL (11.6-15.3); Lymph # (Auto) 0.2 th/mm3 (1.0-4.8); Lymph % (Auto) 1.6 % (9.0-44.0); Mean Corpuscular HGB Conc 34.5 % (32.0-36.0); Mean Corpuscular Hemoglobin 31.7 pg (27.0-34.0); Mean Corpuscular Volume 91.7 fL (80.0-100.0); Mean Platelet Volume 7.8 fL (7.0-11.0); Mono # (Auto) 0.5 th/mm3 (0.0-0.9); Mono % (Auto) 4.2 % (0.0-8.0); Neut # (Auto) 11.2 th/mm3 (1.8-7.7); Neut % (Auto) 93.8 % (16.0-70.0); Platelet Count 155 th/mm3 (150-450); Red Blood Count 3.61 mil/mm3 (4.00-5.30); Red Cell Distribution Width 14.3 % (11.6-17.2); White Blood Count 11.9 th/mm3 (4.0-11.0)
[2018-01-31 05:49] LABS: Calcium 7.8 mg/dL (8.5-10.1); Carbon Dioxide 25.5 meq/L (21.0-32.0); Potassium 5.1 meq/L (3.5-5.1)
[2018-01-31] MEDS: Levothyroxine 50 MCG Tablet PO SCH (06:19)
[2018-01-31] MEDS: ceFAZolin 2 GM Premix Inj 2 GM/50 ML PIGGYBACK IV.SIG SCH ×2 (06:20→14:20)
[2018-01-31] MEDS: Metoprolol Tartrate 25 MG Tablet PO SCH ×3 (06:54→20:34)
[2018-01-31] MEDS: Pantoprazole Inj 40 MG Vial IV.PUSH SCH (09:10)
--- NOTE | 2018-01-31 11:49 | ECG ---
Date Performed: 01/30/2018 Time Performed: 12:19:47 PTAGE: 62 years EKG: SINUS TACHYCARDIA INDETERMINATE AXIS POSSIBLE RIGHT VENTRICULAR CONDUCTION DELAY ABNORMAL R HYTHM ECG PREVIOUS TRACING : 04/26/2016 14.34 DOCTOR: Ernie George Interpretating Date/Time 01/31/2018 11:47:05
--- NOTE | 2018-01-31 15:58 | P.PNCS ---
Subjective Colorectal Surgery Post Op Day #: 1 Interval history: No N or V. Ambulating Objective Result Diagrams: 01/31/18 04:38 01/31/18 04:38 Objective Remarks: Abd: obese,stoma pink Assessment and Plan - Plan Transfer to [address] [place] [address] D/C spann in AM D/C [facility]IST in AM Remove dressing in AM.
[2018-01-31] MEDS: Nortriptyline 25 MG Capsule PO SCH (21:04)
[2018-02-01 05:36] LABS: Baso % (Auto) 0.1 % (0.0-2.0); Eos % (Auto) 0.1 % (0.0-4.0); Hematocrit 31.5 % (35.0-46.0); Hemoglobin 10.8 gm/dL (11.6-15.3); Lymph # (Auto) 0.4 th/mm3 (1.0-4.8); Lymph % (Auto) 3.6 % (9.0-44.0); Mean Corpuscular HGB Conc 34.3 % (32.0-36.0); Mean Corpuscular Hemoglobin 31.4 pg (27.0-34.0); Mean Corpuscular Volume 91.4 fL (80.0-100.0); Mean Platelet Volume 7.8 fL (7.0-11.0); Mono # (Auto) 0.4 th/mm3 (0.0-0.9); Mono % (Auto) 3.8 % (0.0-8.0); Neut # (Auto) 10.5 th/mm3 (1.8-7.7); Neut % (Auto) 92.4 % (16.0-70.0); Platelet Count 144 th/mm3 (150-450); Red Blood Count 3.44 mil/mm3 (4.00-5.30); Red Cell Distribution Width 14.5 % (11.6-17.2); White Blood Count 11.4 th/mm3 (4.0-11.0)
[2018-02-01] MEDS: Levothyroxine 50 MCG Tablet PO SCH (05:50)
[2018-02-01] MEDS: KCL 20 mEq/D5W/LR Inj 1,000 ML IV.CONT SCH ×3 (05:53→22:59)
[2018-02-01 06:10] LABS: Calcium 8.1 mg/dL (8.5-10.1); Carbon Dioxide 30.5 meq/L (21.0-32.0); Potassium 4.4 meq/L (3.5-5.1)
[2018-02-01] MEDS: Pantoprazole Inj 40 MG Vial IV.PUSH SCH (08:34)
[2018-02-01] MEDS: Metoprolol Tartrate 25 MG Tablet PO SCH ×2 (08:34→20:49)
--- NOTE | 2018-02-01 12:12 | P.PNCS ---
Subjective Colorectal Surgery Post Op Day #: 2 Interval history: Ileostomy revision, JASMINA, hernia repair fairly comfortable Objective Result Diagrams: 02/01/18 05:01 02/01/18 05:01 Objective Remarks: Abd: obese,soft, tender stoma pink Assessment and Plan - Plan Advance diet Home soon
[2018-02-01] MEDS: Nortriptyline 25 MG Capsule PO SCH (20:33)
[2018-02-02] MEDS: Levothyroxine 50 MCG Tablet PO SCH (05:05)
[2018-02-02 06:45] LABS: Baso # (Auto) 0.1 th/mm3 (0.0-0.2); Baso % (Auto) 0.4 % (0.0-2.0); Eos # (Auto) 0.1 th/mm3 (0.0-0.4); Eos % (Auto) 0.4 % (0.0-4.0); Hematocrit 33.7 % (35.0-46.0); Hemoglobin 11.6 gm/dL (11.6-15.3); Lymph # (Auto) 0.6 th/mm3 (1.0-4.8); Mean Corpuscular HGB Conc 34.5 % (32.0-36.0); Mean Corpuscular Hemoglobin 31.4 pg (27.0-34.0); Mean Corpuscular Volume 91.2 fL (80.0-100.0); Mean Platelet Volume 7.8 fL (7.0-11.0); Mono # (Auto) 0.4 th/mm3 (0.0-0.9); Mono % (Auto) 2.8 % (0.0-8.0); Neut # (Auto) 14.3 th/mm3 (1.8-7.7); Neut % (Auto) 92.4 % (16.0-70.0); Platelet Count 184 th/mm3 (150-450); Red Blood Count 3.69 mil/mm3 (4.00-5.30); Red Cell Distribution Width 14.2 % (11.6-17.2); White Blood Count 15.5 th/mm3 (4.0-11.0)
[2018-02-02 07:15] LABS: Calcium 8.7 mg/dL (8.5-10.1); Carbon Dioxide 30.5 meq/L (21.0-32.0); Potassium 3.7 meq/L (3.5-5.1)
[2018-02-02] MEDS: Pantoprazole Inj 40 MG Vial IV.PUSH SCH (09:13)
[2018-02-02] MEDS: Metoprolol Tartrate 25 MG Tablet PO SCH (09:13)
[2018-02-02] MEDS: KCL 20 mEq/D5W/LR Inj 1,000 ML IV.CONT SCH (09:15)
--- NOTE | 2018-02-02 12:26 | P.PNCS ---
Subjective Colorectal Surgery Post Op Day #: 3 Interval history: s/p ileostomy revision, hernia repair comfortable, ready to go home Objective Result Diagrams: 02/02/18 06:21 02/02/18 06:21 Objective Remarks: Abd: obese,soft, tender stoma pink Assessment and Plan - Plan Doing well Home today Followup Dr. Swan 3 weeks
== END 2018-02-02 13:30 | disposition home or self-care (01) ==
LOC: HSDI 11:13 → HCPC 19:29
PROVIDERS: ADMIT Colon & Rectal Surgery; ATTEND Colon & Rectal Surgery